=== PATIENT | female | born 1985 | race Caucasian/White ===

== ENCOUNTER → 2023-10-03 | Outpatient (CLI) | payer BC ==
[~2023-10-03] MED LIST: BC PILLS; DOXY100 PO; MULVITMINE PO; NAPR550 PO
[2023-10-14 13:44] LABS: HPV HIGH RISK BY TMA Not Detected; HPV SOURCE Cervical
== END | disposition home or self-care (01) ==
LOC: LAB SHORT 08:10 → LAB 08:10
PROVIDERS: Physician Assistant
DX: Z01.419 Encounter for gynecological examination (general) (routine) without abnormal findings (principal)
CPT/HCPCS: 87624; G0123